=== PATIENT | female | born 2000 | race Caucasian/White ===

== ENCOUNTER 2024-01-20 15:28 | Observation (INO) | payer OTHER, SELFPAY ==
[2024-01-20 15:48] VITALS: BP 137/73; PULSE 104
[2024-01-20 16:14] LABS: Bilirubin Urine NEGATIVE (NEGATIVE); Blood Urine NEGATIVE (NEGATIVE); Clarity Urine SL CLOUDY (CLEAR); Color Urine YELLOW (YELLOW); Glucose Urine UA NEGATIVE (NEGATIVE); Ketones Urine >=80 mg/dL (NEGATIVE); Leukocyte Esterase Urine SMALL (NEGATIVE); Nitrite Urine POSITIVE (NEGATIVE); Protein Urine TRACE mg/dL (NEG/TRACE); Specific Gravity Urine >=1.030 (1.005-1.025); pH Urine 5.5 (5.0-9.0)
[2024-01-20 16:24] LABS: Urine Microscopic Indicated YES
[2024-01-20 16:26] LABS: Bacteria Urine LARGE #/HPF (NONE SEEN); Cast Seen? NONE SEEN #/LPF (NONE SEEN); Crystals Seen? None Seen #/HPF (None Seen); Mucus Urine NONE SEEN (NONE SEEN); RBC Urine 0-2 #/HPF (0-2); Squamous Epithelial Cell Urine FEW #/LPF (NONE/RARE); WBC Urine 50-75 #/HPF (NONE SEEN)
[2024-01-20 16:27] LABS: Urine Culture Indicated YES
[2024-01-20] MEDS: LACTATED RINGER'S SOLUTION 1,000 ML 1000 ML IV (17:53)
[2024-01-20] MEDS: NITROFURANTOIN MONOHYD/MAC-CRST 100 MG CAPSULE PO (18:44)
[2024-01-20 18:58] VITALS: RESP 16; TEMP 36.6
--- NOTE | 2024-01-20 20:23 | PC.NURSE ---
2010 Discharge instructions given. P.O. fluids encouraged. Urine should be pale to clear in toilet. Pt is instructed to order picker/assembler her prescription from her pharmacy for UTI. Labor precautions also given. Pt verbalizes understanding. Her mother is present with her.
== END 2024-01-20 20:25 | disposition home or self-care (01) ==
PROVIDERS: Admitting Provider Midwife; PCP Internal Medicine; Visit Provider Midwife
DX: O60.03 Preterm labor without delivery, third trimester (principal); Z3A.38 38 weeks gestation of pregnancy; R82.998 Other abnormal findings in urine
CPT/HCPCS: 81001; 87086; 87150; 87186; G0378; G0379

== ENCOUNTER 2024-02-15 17:06 | Inpatient (IN) | payer OTHER, SELFPAY ==
[2024-02-15] VITALS (12 sets, daily range): BP systolic 115–126; BP diastolic 57–70; PULSE 82–96; RESP 16; TEMP 36.6–36.7
--- OUTSIDE RECORDS SUMMARY | 2024-02-15 17:24 | XMS_ITS | CCD ---
Author Organization [facility] Care Team Providers Care Civilian Jail Officer Name Role Phone PHYSICIAN, DEFAULT Unavailable Unavailable PHYSICIAN, DEFAULT Unavailable Unavailable MOISES, ABDULAZIM Unavailable Unavailable MOISES, ABDULAZIM Unavailable Unavailable CHANNING JOHNSON Unavailable Unavailable LEANDRO CASTRO Unavailable Unavailable OR Unavailable Unavailable MOISES, ABDULAZIM Unavailable Unavailable OR Unavailable Unavailable ELIANA AGUERO Unavailable Unavailable Leandro Cano Admitting Unavailable Leandro Cano Attending Unavailable Leandro Castro MD Primary Care Provider JIMENAOMICHAELRODRIGUEZ L Attending Unavailable FLORO, RODRIGUEZ L Referring Unavailable FLORO, RODRIGUEZ L Attending Unavailable FLORO, RODRIGUEZ L Attending Unavailable FLORO, RODRIGUEZ L Referring Unavailable FLORO, RODRIGUEZ L Attending Unavailable FLORO, RODRIGUEZ L Attending Unavailable FLORO, RODRIGUEZ L Attending Unavailable FLORO, RODRIGUEZ L Attending Unavailable FLORO, RODRIGUEZ L Attending Unavailable FLORO, RODRIGUEZ L Referring Unavailable FLORO, RODRIGUEZ L Attending Unavailable FLORO, RODRIGUEZ L Attending Unavailable Medications Current Medications Medication Drug Class(es) Dates Sig (Normalized) Sig (Original) famotidine 20 mg oral tablet (3 sources) Histamine-2 Receptor Antagonist Start: 12-13-2023 take 1 tablet by mouth at bedtime famotidine (Pepcid) 20 MG tablet Indications: Heartburn during in third trimester Take 1 tablet (20 mg) by mouth at bedtime 30 tablet 2 12/13/2023 Active Psrzwkiq-Kzj-Lg-FA ( 1 + IRON PO) (3 sources) Xqyrlvww-Dgo-Tj-F A ( 1 + IRON PO) Take by mouth. 0 Active Problems Problem Classification Problem Date Documented Da te Episodic/Chronic Other connective tissue disease (4 sources) Ganglion, left wrist; Translations: [GANGLION, LEFT WRIST] Onset: 09-26-2018 Episodic Other conditions (2 sources) Hrdah-ois-iellf at regardless of gestation period; Translations: [Other heavy for gestational age ] 01-13-2024 Episodic Other and delivery including normal (2 sources) Normal ; Translations: [Encounter for supervision of other normal , third trimester] 01-13-2024 Episodic Unclassified (2 sources) Unknown / UNK(Unknown) Onset: 09-26-2018 Unclassified (3 sources) OB Reminders Onset: 07-28-2023 07-28-2023 Results Test Name Value Interpretation Reference Range Facility US OB FOLLOW UP TRANSABDOMIN AL APPROACHon 02-07-2024 US OB FOLLOW UP TRANSABDOMINAL APPROACH HISTORY: Measuring large for dates. LMP 05/12/2023. COMPARISON: 01/14/2024. TECHNIQUE: Sonography of the pelvis was performed by transabdominal technique. Images were obtained and stored in a permanent archive. RESULT: Gestation: Single present. Position: Cephalic Placenta: Location: Fundal Grade: 1 Previa: absent Cervix: Closed measuring 5.1 cm in length. Cardiac activity: 139 bpm BPD: 9.2 cm HC: 32.7 cm AC: 35.0 cm (39 weeks 0 days) FL: 7.1 cm Amniotic fluid: 23.8 cm, 96th percentile Estimated weight (EFW): 3357 g, 48th percentile Estimated gestational age: 37 weeks 3 days estimated gestational age by composite. Anatomy: No gross anomalies in the visualized anatomy. IMPRESSION: Single, live intrauterine with estimated 37 weeks 3 days gestational age. Polyhydramnios with amniotic fluid at the 96th percentile. AC measures 39 weeks 0 days. ELECTRONICALLY SIGNED BY: Clovis Kay MD Normal Not Available US OB FOLLOW UP TRANSABDOMIN AL APPROACHon 01-14-2024 US OB FOLLOW UP TRANSABDOMINAL APPROACH FINDINGS: A single, live intrauterine is present with normal cardiac rate of 136 beats per minute. Normal activity and amniotic fluid volume. Amniotic fluid index is 17.0 cm. Morphology is grossly normal. Cervix obscured by positioning. Placenta is posterior not associated with the cervical os. The current sonographic age is 35 weeks and 3 days, based on the following measurements: BPD 8.7 cm ( 35 weeks, 2 days) Head Circumference 31.6cm ( 35weeks, 4 days) Abdominal Circumference 32.8cm (36 weeks, 5days) Femur Length 6.6 cm (34 weeks, 0 days) Presentation Cephalic Placenta Posterior These measurements result in an estimated date of delivery of February 15, 2024 The current estimated weight is 2752 grams +/- grams ( 6 pound, 1 ounces). Weight by percentile 60.6% IMPRESSION: 1. Single, live intrauterine , current sonographic age of 35 weeks and 3 days, with an estimated date of delivery of February 15, 2024. 2.Prior examination was December 07, 2023 at that time delivery was February 15, 2024 and weight by percentile was 44.8%. TRANSCRIBED BY: ELECTRONICALLY SIGNED BY: Patrick Sanchez MD Normal Not Available US OB FOLLOW UP TRANSABDOMIN AL APPROACHon 12-07-2023 US OB FOLLOW UP TRANSABDOMINAL APPROACH FINDINGS: Single live intrauterine . heart rate 120 bpm. Cephalic position. Posterior grade 1 placenta. YELITZA 14.83 cm. Cervical length 4.1 cm. Estimated sonographic gestational age 30 weeks, 0 days. Gestational age by dates, 29 weeks, 6 days. Sonographic estimated date of delivery February 15, 2024. Estimated weight 1506 g (44.8% by LMP percentile). BPD 7.52 cm. HC 27.46 cm. FL 5.70 cm. AC 26.05 cm. IMPRESSION: Impression: Single live intrauterine with estimated sonographic gestational age 30 weeks, 0 days. Estimated weight 1506 g. ELECTRONICALLY SIGNED BY: Jelani Wood MD Normal Not Available US OB 14+ WEEKS ANATOMY SCAN on 09-30-2023 US OB 14+ WEEKS ANATOMY SCAN HISTORY: Interval follow-up. Gestational age by LMP of 20 weeks 1 day. COMPARISON: 09/02/2023 TECHNIQUE: Sonography of the pelvis was performed by transabdominal technique. Images were obtained and stored in a permanent archive. RESULT: Gestation: Single present. Position: Cephalic BPD: 4.7 cm HC: 17.8 cm AC: 14.9 cm FL: 3.0 cm Anatomy: No gross anomalies in the visualized anatomy. Cardiac activity: 143 bpm Estimated weight (EFW): 315 g; 28.4 percentile Estimated gestational age: 20 weeks 0 days estimated gestational age by composite. Cervix: Not well visualized. Placenta: Location: Posterior Grade: 0 Previa: absent Amniotic fluid: 16.2 cm, 68.4 percentile Other: Incidental anechoic simple appearing cyst in the left adnexal region measuring 6.9 x 6.4 x 6.2 cm, unchanged from prior. IMPRESSION: Single, live intrauterine with estimated 20 weeks 0 days gestational age. Appropriate interval growth. ELECTRONICALLY SIGNED BY: Clovis Kay MD Normal Not Available Operative Reporton 8 Operative Report MR#: [id number] [facility] Pt. Name: Agustín Martin Room #: 0C Discharge Date: Birthdate: 2000 OPERATIVE REPORTDATE OF SURGERY: 09/26/2018SURGEON: Nikole Santos M.D.MESH CUTTER: Esme Olivares M.D.PREOPERATIVE DIAGNOSIS: Left dorsal wrist ganglion cyst.POSTOPERATIVE DIAGNOSIS: Left dorsal wrist ganglion cyst.PROCEDURE PERFORMED: Left wrist cyst excision.ANESTHESIA: MAC with axillary nerve block.IV FLUIDS: Per Anesthesia report.SPECIMENS: Left dorsal wrist cyst.COMPLICATIONS: None.OPERATIVE FINDINGS: There is a multiloculated cyst communicating with thescapholunate ligament as well as surrounding extensor tendon tenosynovitis.The cyst was removed in its entirety without disruption of the scapholunateligament. PROCEDURE IN DETAIL: The patient was greeted in the preoperative holdingarea. Informed consent was obtained. The operative site was marked by theattending surgeon. An axillary nerve block was performed by the Anesthesiateam. The perioperative antibiotics were initiated. The patient was takenback to the operating room, where sedation was administered by theAnesthesia team. The patient was placed supine on the operating room tablewith a hand table. A nonsterile tourniquet was applied. The operativesite was prepped and draped in the typical sterile fashion. A surgicaltime-out was performed, everyone in the room stopped, the consent was readaloud, and the procedure commenced. Once the patient, procedure,laterality, and administration of preoperative antibiotics was confirmed,the extremity was gravity exsanguinated, and the tourniquet was inflated to250 mmHg. We began by making a transverse incision directly over the cystand blunt dissection was carried down using hemostats and Ragnellretractors. The cyst was readily identified and it was dissected free fromthe surrounding extensor tendon tenosynovium with hemostats and littlerscissors. The stalk of the cyst was isolated and this appeared to trackdown to the scapholunate ligament. Bovie electrocautery was used to gentlypaint the stalk away from the ligament, taking care not to disrupt theligament itself. The cyst was removed in its entirety and sent topathology. The wound was copiously irrigated and closed using 4-0 Biosyn.Sterile dressing of Xeroform gauze, Kerlix, and Edvin wrap was applied. Thetourniquet was let down and the fingers pinked up nicely. The patient wasthen placed into a cock-up wrist splint as well as into a sling. She wastaken back to the PACU for postoperative monitoring. At the conclusion ofthe case, all needle and sponge counts were correct.Electronicall y Signed by:Nkiole Santos M.D. 09/26/2018 02:51 P Beatriz Santos M.D. I was present for the entire procedure. Date Dict: 09/26/2018/11:09 Don/Esme Olivares, DAJUANate Trans: 09/26/2018 02:18 P/mmoDN_JN:[id number]: Leandro Castro M.D. [address], [address] [facility] [address] Channing Johnson, DO [address] [facility] [address] Normal [facility] POC GLUCOSE LABon 09-26-2018 Glucose mass conc 96 mg/dL Normal 70-100 [facility] Comment on above: Performed By: #### [id number] ####[facility] [place] [address], [facility] POC URINE PREGNANCYon 2017 HCG.beta subunit ( test) Ql (U) Negative Normal NEGATIVE [facility] Comment on above: Result Comment: Perf ormed in PACU Performed By: #### [id number] ####[facility] [place] [address], [facility] Vital Signs Date Time Vital Sign Value Performing Clinician Carina chung 01-13-2024 15:28-0500 Body mass index (BMI) [Ratio] 49.6 kg/m2 Rodriguez Floro CNM Work Phone: [facility] 01-13-2024 15:28-050 Body weight 127.01 kg Rodriguez Floro CNM Work Phone: [facility] 01-13-2024 15:28-050 Diastolic blood pressure 60 mm[Hg] Rodriguez Floro CNM Work Phone: [facility] 01-13-2024 15:28-0500 Systolic blood pressure 120 mm[Hg] Rodriguez Floro CNM Work Phone: [facility] Encounters Encounter Date Encounter Type Care Provider Facility Start: 02-14-2024 ambulatory RODRIGUEZ L FLORO Not Irais ilable Start: 02-10-2024 End: 02-11-2024 ambulatory RODRIGUEZ L FLORO Not Available Start: 02-07-2024 End: 02-08-2024 ambulatory RODRIGUEZ L FLORO Not Available Start: 02-03-2024 End: 02-04-2024 ambulatory RODRIGUEZ L FLORO Not Available Start: 01-27-2024 End: 01-28-2024 ambulatory RODRIGUEZ L FLORO Not Available Start: 01-19-2024 End: 01-20-2024 ambulatory RODRIGUEZ L FLORO Not Available Start: 01-14-2024 End: 01-15-2024 ambulatory RODRIGUEZ L FLORO Not Available Start: 01-13-2024 End: 01-14-2024 ambulatory RODRIGUEZ L FLORO Not Available Start: 01-13-2024 End: 01-13-2024 Office outpatient visit 15 minutes Rodriguez L Floro CNM Work Phone: [facility] Comment on above: Large for dates (Lisandra veliz Dx); Encounter for supervision of other normal in third trimester Start: 01-13-2024 Bamboo flowsheet Rodriguez L Nitish ro CNM Work Phone: [facility] Start: 01-13-2024 Bamboo flowsheet Rodriguez L Nitish ro CNM Work Phone: [facility] Start: 12-22-2023 End: 12-23-2023 ambulatory RODRIGUEZ L FLORO Not Available Start: 12-07-2023 End: 12-08-2023 ambulatory RODRIGUEZ L FLORO Not Available Start: 11-09-2023 End: 11-10-2023 ambulatory RODRIGUEZ L FLORO Not Available Start: 10-27-2023 End: 10-28-2023 ambulatory RODRIGUEZ L FLORO Not Available Start: 02-02-2019 End: 02-03-2019 Patient encounter procedure Leandro Cano Facility::[id number] Start: 09-26-2018 End: 09-27-2018 Patient encounter procedure ABDULAZIM MOISES Facility:[facility] Start: 09-07-2018 End: 09-08-2018 Patient encounter procedure DEFAULT PHYSICIAN Facility:[facility] Procedures Date Procedure Procedure Detail Performing Clinician Start: 09-26-2018 ANESTH LOWER ARM SURGERY ELIANA AGUERO Start: 09-26-2018 REMOVE WRIST TENDON LESION ABDULAZIM MOISES Plan of Treatment Date Care Activity Detail Author Start: 01-19-2024 End: 01-19-2024 Patient encounter procedure 01/19/2024 4:30 PM EST Routine [facility] [address] [place] [address] Rodriguez Carcamo, CNM [address] [place] [address] [facility] Start: 01-14-2024 End: 01-14-2024 Professional / ancillary services management 01/14/2024 4:15 PM EST Ancillary Procedure [facility] [address] [address] [facility] Start: 01-13-2024 End: 01-13-2024 Patient encounter procedure 01/13/2024 3:30 PM EST Routine [facility] [address] [place] [address] Rodriguez Carcamo CNM [address] [place] [address] Arrived [facility] Comment on above: Arrived Start: 01-13-2024 End: 01-13-2025 US for US OB follow up transabdominal approach Imaging Routine Large for dates Expected: 01/13/2024, Expires: 01/13/2025 [facility] Work Phone: Comment on above: Expected: 01/13/2024 , Expires: 01/13/2025 Payers Date Payer Category Payer Private Health Insurance [facility] [id number] 2024-Present [address] [address] [place] [address] [id number] 2023 Private Health Insurance [id number] 2022 Unknown [id number] 2000 Unknown [id number] [id number]. 647 2000 Unknown [id number] 2.16.840.1.326906.3.579.2. 647 2000 Unknown [id number] 2.16.840.1.634124.3.579.2. 9 2000 Unknown [id number] 2.16.840.1.594005.3.579.2. 9 2000 Unknown [id number] 2.16.840.1.222619.3.579.2. 9 2000 Unknown [id number] 2.16.840.1.476302.3.579.2. 9 2000 Unknown [id number] 2.16.840.1.312367.3.579.2. 1259 2000 Unknown [id number] 2.16.840.1.954370.3.579.2. 9 2000 Unknown [id number] 2.16.840.1.561744.3.579.2. 9 2000 Unknown [id number] 2.16.840.1.186880.3.579.2. 1259 2000 Unknown [id number] 2.16.840.1.038480.3.579.2. 9 2000 Unknown [id number] 2.16.840.1.217668.3.579.2. 9 2000 Unknown [id number] 2.16.840.1.907304.3.579.2. 9 2000 Unknown [id number] 2.16.840.1.050578.3.579.2. 9 2000 Unknown [id number] 2.16.840.1.219321.3.579.2. 9 Unknown [id number] Unknown Social History Date Type Detail Facility Start: 07-28-2023 Tobacco smoking stat [facility] Ex-smoker [facility] History of tobacco use Current smoker [facility] History of tobacco use Cigarette Smoker [facility] Start: 07-28-2023 Tobacco use and exposure Smokeless t obacco non-user [facility] Start: 07-28-2023 Alcohol intake Ex-drinker (finding) [facility] Start: 07-28-2023 History of Social function [facility] Start: 07-28-2023 Tobacco use panel [facility] Start: 07-21-2023 Alcohol Comment 1 or 2 drinks on a typical day/monthly or less [facility] Start: 05-26-2023 [facility] Start: 2000 Sex Assigned At Not on file [facility] Goals Date Patient Goal Desired Activity /State Personal health goal History of Present illness Narrative 01-13-2024 Rodriguez Carcamo CNM - 01/13/2024 3:30 PM EST Note Date & Type Note Facility 01-13-2024 History of Presen t illness Narrative Subjective No chief complaint on file. She Martin is a 23 y.o. at 35w1d with a working estimated date of delivery of 02/16/2024, by Last Menstrual Period who presents for a routine visit. She denies vaginal bleeding, leakage of fluid, decreased movements, or contractions. Her is complicated by: large for dates Objective Physical Exam weight: 280 lb Expected Total Weight Gain: 11 lb-19 lb Pregravid BMI: 48.90 BP: 120/60 Urine glucose-negative,protein-negative Assessment/Plan Diagnoses and all orders for this visit: Large for dates - US OB follow up transabdominal approach; Future Encounter for supervision of other normal in third trimester Patient is 35 weeks and fundal height is measuring 40. US ordered Continue vitamin. Labs reviewed. GBS next week Expected mode of delivery Follow up in 1 week for a routine visit. documented in this encounter [facility] Evaluation note Note Date & Type Note Facility Evaluation note Diagnosis Large for dates- Primary Encounter for supervision of other normal in third trimester documented in this encounter [facility] Summary Purpose Family History No Family History Records FoundNo Family History Records FoundNo Family History Records Found Advance Directives No Advanced Directives Records FoundNo Advanced Directives Records FoundNo Advanced Directives Records Found Additional Source Comments INFORMATION SOURCE (unrecogn ized section and content) DATE CREATED AUTHOR 11/01/2018 [facility] DATE CREATED AUTHOR AUTHOR'S ORGANIZ ATION 02/04/2019 [facility] DATE CREATED AUTHOR AUTHOR'S ORGANIZ ATION 02/15/2024 [facility] EPIC Care Teams (unrecognized sec tion and content) Civilian [employer] Officer Relationship Specialty Start Date End Date Leandro Castro MD [address] [place] [address], [address] [place] [address] PCP - General Family Medicine 07/20/23 Civilian Jail Officer Relationship Specialty Start Date End Date Leandro Castro MD [address] [place] [address], [address] [place] [address] PCP - General Family Medicine 07/20/23 FOR RECORDS PERTAINING TO PATIENTS WHO ARE OR HAVE BEEN ENROLLED IN A CHEMICAL DEPENDENCY/SUBSTANCEABUSE PROGRAM, SOME INFORMATION MAY BE OMITTED. This clinical summary was aggregated from multiple sources. Caution should be exercised in using it in the provision of clinical care. This summary normalizes information from multiple sources, and as a consequence, information in this document may materially change the coding, format and clinical context of patient data. In addition, data may be omitted in some cases. CLINICAL DECISIONS SHOULD BE BASED ON THE PRIMARY CLINICAL RECORDS. [facility]. provides no warranty or guarantee of the accuracy or completeness of information in this document.
[2024-02-15] MEDS: DINOPROSTONE 10 MG VAG INSERT.ER VAGINAL (18:08)
[2024-02-15 18:13] LABS: Hematocrit 36.2 % (36.0-48.0); Hemoglobin 11.7 g/dL (12.0-16.0); Mean Corpuscular HGB Conc 32.3 g/dL (29.9-35.2); Mean Corpuscular Hemoglobin 26.5 pg (26.7-34.0); Mean Corpuscular Volume 81.9 fL (81.0-99.0); Mean Platelet Volume 10.1 fL (9.5-13.5); Platelet Count 254 10^3/uL (150-450); Red Blood Count 4.42 10^6/uL (4.20-5.40); Red Cell Distribution Width 13.2 % (11.0-15.0); White Blood Count 9.4 10^3/uL (4.0-11.0)
[2024-02-15 18:28] LABS: Amphetamine Screen Urine NEGATIVE (NEGATIVE); Barbiturates Screen Urine NEGATIVE (NEGATIVE); Benzodiazepines Screen Urine NEGATIVE (NEGATIVE); Buprenorphine Screen Urine NEGATIVE (NEGATIVE); Cannabinoid Screen Urine NEGATIVE (NEGATIVE); Cocaine Screen Urine NEGATIVE (NEGATIVE); Methadone Screen Urine NEGATIVE (NEGATIVE); Methamphetamines Screen Urine NEGATIVE (NEGATIVE); Opiate Screen Urine NEGATIVE (NEGATIVE); Oxycodone Screen Urine NEGATIVE (NEGATIVE); Phencyclidine Screen Urine NEGATIVE (NEGATIVE); Tricyclic Antidepressant Urine NEGATIVE (NEGATIVE)
[2024-02-16] VITALS (47 sets, daily range): BP systolic 98–139; BP diastolic 46–80; PULSE 70–141; RESP 16; TEMP 36.6–37.1
[2024-02-16] MEDS: LACTATED RINGER'S SOLUTION 1,000 ML 125 ML IV ×2 (09:31→13:52)
[2024-02-16] MEDS: OXYTOCIN/0.9 % SODIUM CHLORIDE 10 UNITS/500 ML PLAST..BAG 6 UNIT IV (09:32)
[2024-02-16] MEDS: ROPIVACAINE HCL/PF 400 MG/200 ML PREMIX 6 MG EPIDURAL (13:49)
--- NOTE | 2024-02-16 13:49 | PM.OBHP ---
OB - H&P: HPI History of Present Illness Chief complaint: INDUCTION : 2 Para: 1 Gestational age based on last menstrual period: 40.0 weeks Indications for induction: other (elective induction at term. polyhydramnios ) History of Present Dating criteria: LMP confirmed by 1st trimester US care: good care Ultrasounds: normal 1st trimester US and normal mid trimester US complications: other (situational stress with FOB , polyhydramnios ) Medical complications OB: none Labs Blood type: O (+) positive Rubella: immune RPR/VDLR: nonreactive GBS status: negative HBsAG: negative Review of Systems ROS Status of ROS: 10 or more systems reviewed and unremarkable except as noted in history and below Meds Home Medications and Allergies Allergies Allergy/AdvReac Type Severity Reaction Status Date / Time No Known Drug Allergies Allergy Verified 01/20/24 17:29 Exam Constitutional Vital Signs, click to edit/add: Last Vital Signs Temp 98.7 F 02/16/24 10:00 Pulse 90 02/16/24 13:45 Resp 16 02/15/24 18:01 BP 121/60 02/16/24 13:45 O2 Del Method Room Air 02/15/24 18:01 Documenting provider has reviewed patient's vital signs: yes Common normals: no apparent distress HENMT Common normals: normocephalic Eye Common normals: EOMs intact bilaterally General eye: normal appearance of both eyes Neck & C-Spine Common normals: full ROM Lymph Lymphatic: no lymphadenopathy noted Chest Common normals: inspection of chest normal Respiratory Common normals: normal respiratory effort Cardio Common normals: regular rate and regular rhythm Rate: regular rate Rhythm: regular rhythm GI Common normals: Normal to inspection, nondistended, normoactive bowel sounds present Inspection: normal to inspection Auscultation: normoactive bowel sounds Common normals: no CVA tenderness Extremity Common normals: normal to inspection and full ROM Neuro Common normals: oriented x3 Sensorium/orientation: awake, alert, oriented to person, oriented to place and oriented to time Psych Common normals: mental status grossly normal, thought process normal and cooperative Attitude: calm Speech: normal speech Results Labs Labs: Short CBC 02/15/24 Range/Units 18:05 WBC 9.4 (4.0-11.0) 10^3/uL Hgb 11.7 L (12.0-16.0) g/dL Hct 36.2 (36.0-48.0) % Plt Count 254 (150-450) 10^3/uL OB - A/P Assessment and Plan (1) Term :
[2024-02-16] MEDS: OXYTOCIN/0.9 % SODIUM CHLORIDE 20 UNITS/1,000 ML PLAST..BAG 125 UNIT IV (16:54)
--- NOTE | 2024-02-16 17:29 | PM.OBPRCVD ---
Procedure Procedure: of viable baby girl Intrapartal events: None Induction method: other (cervidil ) Delivery monitor: external FHT and external uterine Route of delivery: Episiotomy Description: none L&D Laceration Description: none Anesthesia type: Epidural Disposition: no change Delivery date: 02/16/24 Gender: female presentation: vertex Placental delivery description: Spontaneous cord description: 3 Vessels heart rate - 1 minute: 100 bpm or Greater respiratory effort - 1 minute: Spontaneous/Strong Cry muscle tone - 1 minute: Active Movement reflex response - 1 minute: Minimal Response color - 1 minute: Bluish Hands or Feet total score - 1 minute: 8 heart rate - 5 minute: 100 bpm or Greater respiratory effort - 5 minute: Spontaneous/Strong Cry muscle tone - 5 minute: Active Movement reflex response - 5 minute: Prompt Response color - 5 minute: Bluish Hands or Feet total score - 5 minute: 9
[2024-02-17] VITALS (7 sets, daily range): BP systolic 107–137; BP diastolic 54–72; PULSE 78–114; RESP 16–18; TEMP 36.4–37.9
[2024-02-17] MEDS: IBUPROFEN 400 MG TABLET 800 MG PO ×2 (06:25→18:13)
--- NOTE | 2024-02-17 07:49 | P.OBPN_ITS ---
OB - PN: Subj Subjective Patient comments: no complaints and pain well controlled [place] status: doing well Exam Constitutional Vital Signs, click to edit/add: Last Vital Signs Temp 98.2 F 02/17/24 00:05 Pulse 78 02/17/24 07:44 Resp 16 02/17/24 00:05 BP 107/54 02/17/24 07:44 O2 Del Method Room Air 02/17/24 00:05 Documenting provider has reviewed patient's vital signs: yes Common normals: no apparent distress Respiratory Common normals: clear to auscultation bilaterally Cardio Common normals: regular rate and regular rhythm GI Common normals: Normal to inspection, nondistended, normoactive bowel sounds present Extremity Common normals: no clubbing, cyanosis or edema and no calf tenderness OB - PN: A/P Assessment and Plan (1) Term : Plan - Vaginal Delivery day: 1 Plan: routine care Time Spent with Patient Time: Total time spent is greater than 50% in coordination of care (as documented) at patient's floor/unit and/or counseling patient: Total time spent with greater than 50% in coordination of care (as documented) at patient's floor/unit and/or counseling patient: less than 15 minutes
[2024-02-17] MEDS: DOCUSATE SODIUM 100 MG CAPSULE PO ×2 (11:10→20:55)
[2024-02-17 19:03] LABS: Basophils Percent Auto 0.1 % (0.2-2.0); Hematocrit 36.1 % (36.0-48.0); Hemoglobin 11.5 g/dL (12.0-16.0); Immature Granulocytes Abs Auto 0.02 10^3/uL (0.00-0.03); Immature Granulocytes Pct Auto 0.2 % (0.0-0.5); Lymphocytes Percent Auto 10.5 % (20.5-60.0); Mean Corpuscular HGB Conc 31.9 g/dL (29.9-35.2); Mean Corpuscular Hemoglobin 25.9 pg (26.7-34.0); Mean Corpuscular Volume 81.3 fL (81.0-99.0); Monocytes Absolute Auto 0.6 10^3/uL (0.3-0.8); Monocytes Percent Auto 6.5 % (1.7-12.0); Neutrophils Absolute Auto 7.5 10^3/uL (1.4-6.5); Neutrophils Percent Auto 82.7 % (43.0-75.0); Platelet Count 200 10^3/uL (150-450); Red Blood Count 4.44 10^6/uL (4.20-5.40); Red Cell Distribution Width 13.2 % (11.0-15.0); White Blood Count 9.1 10^3/uL (4.0-11.0)
[2024-02-17 19:15] LABS: SARS-CoV-2 Ag NEGATIVE (NEGATIVE)
[2024-02-17] MEDS: AMPICILLIN SODIUM/SULBACTAM NA 3 GM in 0.9 % SODIUM CHLORIDE 100 ML IV (20:19)
[2024-02-17] MEDS: 0.9 % SODIUM CHLORIDE 1,000 ML 125 ML IV (20:20)
[2024-02-17] MEDS: ACETAMINOPHEN 500 MG TABLET 1000 MG PO (21:51)
[2024-02-18] MEDS: AMPICILLIN SODIUM/SULBACTAM NA 3 GM in 0.9 % SODIUM CHLORIDE 100 ML IV ×2 (01:17→07:49)
[2024-02-18 01:23] VITALS: RESP 16; TEMP 36.5
[2024-02-18] MEDS: IBUPROFEN 400 MG TABLET 800 MG PO (06:09)
[2024-02-18 06:19] VITALS: TEMP 37.4
--- NOTE | 2024-02-18 07:13 | P.OBPN_ITS ---
OB - PN: Subj Subjective Patient comments: no complaints and pain well controlled [place] status: doing well Exam Constitutional Vital Signs, click to edit/add: Last Vital Signs Temp 99.4 F 02/18/24 06:19 Pulse 114 H 02/17/24 20:30 Resp 16 02/18/24 01:23 BP 119/64 02/17/24 20:30 O2 Del Method Room Air 02/18/24 01:23 Documenting provider has reviewed patient's vital signs: yes Common normals: no apparent distress Respiratory Common normals: clear to auscultation bilaterally Cardio Common normals: regular rate and regular rhythm GI Common normals: Normal to inspection, nondistended, normoactive bowel sounds present Extremity Common normals: no calf tenderness Results Labs Labs: Short CBC 02/17/24 Range/Units 18:47 WBC 9.1 (4.0-11.0) 10^3/uL Hgb 11.5 L (12.0-16.0) g/dL Hct 36.1 (36.0-48.0) % Plt Count 200 (150-450) 10^3/uL OB - PN: A/P Assessment and Plan (1) Term : Plan - Vaginal Delivery day: 2 Plan: routine care, discharge home and follow up 6 weeks Comment: pt doing well, denies n,v,d,f,c denies cp sob ct, denies any abdominal pain, pt states feel great and would like to go home Time Spent with Patient Time: Total time spent is greater than 50% in coordination of care (as documented) at patient's floor/unit and/or counseling patient: Total time spent with greater than 50% in coordination of care (as documented) at patient's floor/unit and/or counseling patient: less than 15 minutes
[2024-02-18 07:57] VITALS: BP 131/65; PULSE 86
[2024-02-18] MEDS: DOCUSATE SODIUM 100 MG CAPSULE PO (09:10)
== END 2024-02-18 11:50 | disposition home or self-care (01) | DRG 807 ==
PROVIDERS: Obstetrics & Gynecology; Admitting Provider Midwife; PCP Internal Medicine; Visit Provider Midwife
DX: O40.3XX0 Polyhydramnios, third trimester, not applicable or unspecified (principal); Z37.0 Single live birth; Z3A.40 40 weeks gestation of pregnancy; O99.214 Obesity complicating childbirth; E66.01 Morbid (severe) obesity due to excess calories; Z87.891 Personal history of nicotine dependence
CPT/HCPCS: 36415; 51702; 59050; 59410; 80307; 85025; 85027; 86850; 86900; 86901; 87040; 87811; 96365; 96366; 96367; 96376